=== PATIENT | male | born 1990 | race Caucasian/White ===

== ENCOUNTER 2022-05-14 16:36 | Emergency (ER) | payer MEDICAID ==
[~2022-05-14] VITALS: Ht 175.3 cm; Wt 75.0 kg
[2022-05-14] MEDS ORDERED: ONDANSETRON HCL 4MG/2ML INJ IV STA (17:20)
[2022-05-14] MEDS ORDERED: SODIUM CHLORIDE 0.9% 1,000 ML IV ONE (17:30)
[2022-05-14 17:45] LABS: BASOPHILS % 0.4 % (0.0-2.0); EOSINOPHILS % 0.7 % (0.0-5.0); HEMOGLOBIN. 15.3 g/dL (14.0-18.0); LYMPHOCYTES % 24.1 % (20.0-50.0); MEAN CORPUSCULAR HEMOGLOBIN 31.4 pg (28.0-32.0); MEAN CORPUSCULAR VOLUME 92.1 fL (80.0-94.0); MEAN PLATELET VOLUME 8.5 fl (7.4-10.4); NEUTROPHILS % 69.8 % (40.0-76.0); PLATELET 316 x1000/uL (130-400); RED BLOOD CELL COUNT 4.88 mill/uL (4.7-6.1)
[2022-05-14 17:54] LABS: CHLORIDE 108 mEq/L (98-107)
[2022-05-14 18:01] LABS: ETHANOL BLOOD < 10 mg/dL
[2022-05-14] MEDS ORDERED: NALO4SPR BOTHNSTRLS (20:35)
[2022-05-14 21:19] VITALS: BP 132/73
== END 2022-05-14 21:19 | disposition home or self-care (01) ==
LOC: ER 16:36
DX: T40.5X1A Poisoning by cocaine, accidental (unintentional), initial encounter (principal); R55 Syncope and collapse; F14.129 Cocaine abuse with intoxication, unspecified; R06.02 Shortness of breath; R11.10 Vomiting, unspecified; R61 Generalized hyperhidrosis; Y92.89 Other specified places as the place of occurrence of the external cause; Z88.0 Allergy status to penicillin
CPT/HCPCS: 36415; 70450; 71045; 80053; 80307; 80320; 80329; 85025; 96361; 96374; 99285; J2405; J7030; G0480

== ENCOUNTER 2024-12-26 12:44 | Emergency (ER) | payer MEDICAID ==
[~2024-12-26] VITALS: Ht 180.3 cm; Wt 89.0 kg
[~2024-12-26 12:44] MED LIST: NALO4SPR BOTHNSTRLS
[2024-12-26] MEDS ORDERED: PREDNISOLONE ACETATE 1% OPHTH DROPS 5ML ONE (13:32)
[2024-12-26] MEDS ORDERED: BUPIVACAINE HCL/PF 0.75% (7.5MG/ML) 10ML ONE (13:32)
[2024-12-26] MEDS ORDERED: LIDOCAINE HCL/EPINEPHRINE 2%-EPI 1:200,000 20ML VIAL ONE (13:32)
[2024-12-26] MEDS ORDERED: TETRACAINE 0.5% OPHTH DROPS 4ML ONE (13:32)
[2024-12-26] MEDS ORDERED: NEO/POLYMYX B SULF/DEXAMETH OPHTH OINT 3.5GM ONE (13:32)
[2024-12-26] MEDS ORDERED: BALANCED SALT IRRIG SOLN 15ML ONE (13:32)
[2024-12-26] MEDS ORDERED: CIPROFLOXACIN 0.3% OPHTH SOLN 2.5ML ONE (13:32)
[2024-12-26] MEDS ORDERED: ACETAZOLAMIDE 500MG ER CAPSULE PO ONE (13:32)
[2024-12-26 13:34] VITALS: O2SAT 99
[2024-12-26 13:45] VITALS: BP 126/80; PULSE 96; RESP 18; TEMP 36.9; O2SAT 99
[2024-12-26] MEDS ORDERED: ACETAZOLAMIDE SODIUM 500MG/VIAL IV ONE (13:51)
[2024-12-26 14:01] LABS: BASOPHILS % 0.3 % (0.0-2.0); EOSINOPHILS % 1.4 % (0.0-5.0); HEMATOCRIT. 47.3 % (42.0-52.0); HEMOGLOBIN. 16.3 g/dL (14.0-18.0); LYMPHOCYTES % 36.7 % (20.0-50.0); MEAN PLATELET VOLUME 8.4 fl (7.4-10.4); MONOCYTES % 6.0 % (2.0-8.0); NEUTROPHILS % 55.6 % (40.0-76.0); PLATELET 313 x1000/uL (130-400); RED BLOOD CELL COUNT 5.22 mill/uL (4.7-6.1); RED CELL DISTRIBUTION WIDTH 12.9 % (11.6-14.6)
[2024-12-26] MEDS ORDERED: FENTANYL CITRATE/PF 50MCG/ML 2ML VIAL ONE (14:03)
[2024-12-26] MEDS ORDERED: LIDOCAINE HCL 1% 10 MG/ML 10ML VIAL ONE (14:04)
[2024-12-26] MEDS ORDERED: PROPOFOL 200MG/20ML VIAL IV ONE (14:04)
[2024-12-26] MEDS ORDERED: MIDAZOLAM HCL 2 MG/2 ML VIAL ONE (14:04)
[2024-12-26] MEDS ORDERED: FAMOTIDINE 20MG/2ML VIAL IV ONE (14:06)
[2024-12-26 14:14] LABS: CREATININE 0.9 mg/dL (0.6-1.3); UREA NITROGEN BLOOD 11 mg/dL (9-23)
[2024-12-26] MEDS ORDERED: ONDANSETRON HCL 4MG/2ML INJ IV PRN (14:30)
[2024-12-26] MEDS ORDERED: ACETAMINOPHEN 1,000MG/100ML PREMIX IV PRN (14:30)
[2024-12-26] MEDS ORDERED: HYDROMORPHONE HCL/PF 1MG/ML INJ IV PRN (14:30)
[2024-12-26] MEDS ORDERED: MEPERIDINE HCL/PF 25MG/ML CPJ IV PRN (14:30)
[2024-12-26] MEDS ORDERED: FAMOTIDINE 20MG/2ML VIAL IV PRN (14:30)
[2024-12-26] MEDS ORDERED: LABETALOL 5MG/ML 4ML INJ IV PRN (14:30)
[2024-12-26] MEDS ORDERED: HYDRALAZINE 20MG/ML VIAL IV PRN ×2 (14:30)
[2024-12-26 14:36] LABS: INR 0.9
[2024-12-26] MEDS ORDERED: CLINDAMYCIN 600MG PREMIX 50 ML IV ONE (14:56)
[2024-12-26] MEDS ORDERED: TRIAMCINOLONE ACETONIDE 40MG/ML 1ML VIAL ONE (15:05)
== END 2024-12-26 14:02 | disposition admitted as inpatient to this hospital (09) ==
LOC: ER 12:44
DX: H40.9 Unspecified glaucoma (principal); R07.9 Chest pain, unspecified; Z88.0 Allergy status to penicillin
CPT/HCPCS: 66180; 80048; 85025; 85610; 85730; 86850; 86900; 86901; 36415; 93005; 99285; J3010; J3490 ×3; J1308; J2003; J2250; J2704; J1120; J3301; Z7610 ×14; C1783